=== PATIENT | female | born 1995 | race Caucasian/White ===

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

== ENCOUNTER 2019-04-27 11:34 | Emergency (ER) | payer OTHER ==
[2019-04-27 11:51] VITALS: BP 124/76
--- NOTE | 2019-04-27 12:06 | UC ---
Throat Pain/Nasal Neil HPI - HPI Summary HPI Summary: 23 y/o female presents to the urgent care c/o sore throat,chills, subjective low grade fever, hoarseness, body aches, WIN, B/L ear pain, nasal congestion w/ clear nasal discharge for the past for the past 4 days. Pt reports On Sunday04/22/2019, she had a stomach bug for 1 day w/ N/V/D, but it resolved. Pt has taken Tylenol PO, Nyquil PO to alleviate symptoms. Pain is 3/10. Pt denies, cough, SOB, chest pain,abdominal pain, N/V/D. - History of Current Complaint Chief Complaint: UCGeneralIllness Stated Complaint: COUGH, SORE THROAT,CONGESTION Time Seen by Provider: 04/27/19 12:04 Hx Obtained From: Patient Hx Last Menstrual Period: 03/31/19 Onset/Duration: Gradual Onset, Lasting Days - 3 days, Still Present, Worse Since - today w/ sore throat and boduy aches Severity: Moderate Pain Intensity: 4 - sore throat Pain Scale Used: 0-10 Numeric Cough: None Associated Signs & Symptoms: Positive: Sinus Discomfort, Nasal Discharge - clear , Fever - low grade fever subjective at home - Epiglottits Risk Factors Epiglottis Risk Factors: Negative - Allergies/Home Medications Allergies/Adverse Reactions: Allergies Allergy/AdvReac Type Severity Reaction Status Date / Time No Known Allergies Allergy Verified 04/27/19 11:45 Home Medications: Home Medications Dm/Acetaminophen/Doxylamine [Nighttime Cold-Flu Rlf Sftgl] 2 tab PO ONCE [History Confirmed 04/27/19] PMH/Surg Hx/FS Hx/Imm Hx Previously Healthy: Yes - Pt denies PMHX - Surgical History Surgical History: Yes Surgery Procedure, Year, and Place: L eye - Family History Known Family History: Positive: Hypertension Negative: Diabetes - Social History Occupation: Student Lives: With Family Alcohol Use: Occasionally Substance Use Type: None Smoking Status (MU): Never Smoked Tobacco - Immunization History Vaccination Up to Date: Yes Review of Systems All Other Systems Reviewed And Are Negative: Yes Constitutional: Positive: Fever - subjective at home, Chills Skin: Positive: Negative Eyes: Positive: Negative ENT: Positive: Sore Throat, Ear Ache - B/L ear pain, Nasal Discharge - clear, Sinus Congestion, Sinus Pain/Tenderness, Other - PND Respiratory: Positive: Negative Cardiovascular: Positive: Negative Gastrointestinal: Positive: Negative Genitourinary: Positive: Negative Motor: Positive: Negative Neurovascular: Positive: Negative Musculoskeletal: Positive: Myalgia Neurological: Positive: Headache Psychological: Positive: Negative Is Patient Immunocompromised?: No Physical Exam - Summary Physical Exam Summary: VITAL SIGNS: Reviewed. GENERAL: Patient is a well developed and nourished female adolescent who is sitting comfortably in the examining table. Patient is not in any acute respiratory distress. HEAD AND FACE: No signs of trauma. No ecchymosis, hematomas or skull depressions. No sinus tenderness. EYES: PERRLA, EOMI x 2, No injected conjunctiva, no nystagmus. No photophobia. EARS: Hearing grossly intact. Ear canals and tympanic membranes are within normal limits. MOUTH: Positive pharynx with mild erythema, no exudates, No B/L tonsillar enlargement , no exudate. Uvula in midline. edematous nasal mucosa w/ clear nasal discharge, clear PND NECK: Supple, trachea is midline, Positive anterior cervical lymphadenopathy, no JVD, no carotid bruit, no c-spine tenderness, neck with full ROM. No meningeal signs, no Kernig's or brudzinskis signs. CHEST: Symmetric, no tenderness at palpation LUNGS: Clear to auscultation bilaterally. No wheezing or crackles. CVS: Regular rate and rhythm, S1 and S2 present, no murmurs or gallops appreciated. ABDOMEN: Soft, non-tender. No signs of distention. No rebound no guarding, and no masses palpated. Bowel sounds are normal. EXTREMITIES: FROM in all major joints, no edema, no cyanosis or clubbing. NEURO: Alert and oriented x 3. No acute neurological deficits. Pt follows commands. SKIN: Dry and warm Triage Information Reviewed: Yes Vital Signs: Initial Vital Signs Temp 98.3 F 04/27/19 11:45 Pulse 106 04/27/19 11:45 Resp 16 04/27/19 11:45 BP 124/76 04/27/19 11:45 Pulse Ox 100 04/27/19 11:45 Throat Pain/Nasal Course/Dx - Course Course Of Treatment: 23 y/o female presents to the urgent care c/o sore throat,chills, subjective low grade fever, hoarseness, body aches, WIN, B/L ear pain, nasal congestion w/ clear nasal discharge for the past for the past 4 days. Pt reports On Sunday04/22/2019, she had a stomach bug for 1 day w/ N/v/D, but it resolved. Pt has taken Tylenol PO, Nyquil PO to alleviate symptoms. Pain is 3/10. Pt denies, cough, SOB, chest pain,abdominal pain, N/V/D.Hx obtained. Hx obtained. Pt is hemodynamically stable, A&OX3 w/ possible viral syndrome on examination. Influenza A&B ordered: result: negative. Rapid strep: negative.Pt given Ibuprofen PO by the nurse. Pt otlerated well medication and felt better. Advised to continue w/ ibuprofen PO to alleviates symptoms. Advised on hand washing. Pt advised to rest, increase fluid intake, eat well and avoid strenuous exercise. If symptoms do not improve or worsen advised to return to the urgent care or f/u with her PCP for further evaluation and treatment. Pt understood and agreed with plan of care. - Differential Dx/Diagnosis Differential Diagnosis/HQI/PQRI: Influenza, Laryngitis, Otitis Media, Pharyngitis, Sinusitis, Tonsillitis, URI Provider Diagnosis: Acute viral syndrome Discharge ED - Sign-Out/Discharge Documenting (check all that apply): Patient Departure - D/C home All imaging exams completed and their final reports reviewed: No Studies - Discharge Plan Condition: Stable Disposition: HOME Patient Education Materials: Viral Syndrome (ED) Referrals: [facility] [place] [facility]ERR[facility] [Outside] - 3 Days Additional Instructions: 1- Rapid influenza A&B are negative, strep is negative. Encourage hand washing and wear a mask to avoid spreading. 2-Please continue taking Ibuprofen PO q6-8hrs prn as instructed after meals to alleviate fever, and sore throat. Increase fluid intake, eat well, rest and avoid strenuous exercise 3-If symptoms do not improve or worsen please return to the urgent care or f/u with your PCP in 3 days for further evaluation and treatment. - Billing Disposition and Condition Condition: STABLE Disposition: Home
[2019-04-27] MEDS ORDERED: Ibuprofen TAB* 600 MG PO ONE (12:29)
[2019-04-27 12:34] LABS: Influenza A Molecular NEGATIVE (Negative); Influenza B Molecular NEGATIVE (Negative)
== END 2019-04-27 12:46 | disposition home or self-care (01) ==
LOC: UCCORT 11:34
DX: B34.9 Viral infection, unspecified (principal); J02.9 Acute pharyngitis, unspecified; H92.03 Otalgia, bilateral; J34.89 Other specified disorders of nose and nasal sinuses; M79.10 Myalgia, unspecified site; R51 Headache
CPT/HCPCS: 87651; 99212; A9270-GY; G0463